=== PATIENT | female | born 1985 | race Hispanic/Latino ===

== ENCOUNTER → 2025-08-30 13:09 | Outpatient (CLI) | payer OTHER, SELFPAY ==
--- NOTE | 2025-08-30 13:13 | DI.US.S_ITS ---
MM diagnostic mammo BI, US breast RT limited: 08/30/2025 BI-RADS: 3 CLINICAL: 40-year old female for bilateral diagnostic mammogram and right diagnostic breast ultrasound. Tyrer-Cuzick lifetime risk of 12.8%. No personal or first- degree family history of breast cancer. The patient presents for additional evaluation of an inconclusive screening mammogram. PRIOR EXAMS 07/16/2025. MAMMOGRAPHY TECHNIQUE: 2D and 3D (tomosynthesis) digital mammographic views obtained, with additional images as needed for full coverage. Current study was also evaluated with a Computer Aided Detection (CAD) system. ULTRASOUND TECHNIQUE TARGETED Right Breast Ultrasound: Real-time ultrasound exam was performed focused to area of clinical and/or imaging concern. Real-time lorenzo scale and color doppler imaging of the area of clinical interest was performed with image documentation. DENSITY C. The breasts are heterogeneously dense, which may obscure small masses. MAMMOGRAPHY FINDINGS Right (finding-1): Upper Outer Quadrant, Middle depth, measuring 1.7cm: Correlating with findings on screening mammogram there is a circumscribed, oval, equal-density mass present. Right (finding-2): MLO only, Lower, Middle depth: The asymmetry seen on recent screening mammogram did not persist with additional imaging and is consistent with superimposition of normal breast tissue. Right: CC only, Outer, Middle depth: The asymmetry seen on recent screening mammogram did not persist with additional imaging and is consistent with superimposition of normal breast tissue. Left: MLO only, Upper, Posterior depth: The asymmetry seen on recent screening mammogram is less conspicuous with additional imaging and is consistent with benign fibroglandular tissue. There are no suspicious masses, calcifications, or other findings in the breast. ULTRASOUND FINDINGS Right (finding-1): Upper Outer at 10:00, 4 cm from nipple, measuring 1.5 x 0.8 x 1.6 cm: Correlating with findings on mammogram there is an oval mass that is parallel showing no posterior acoustic features. Doppler shows no vascularity. Right (finding-2): Lower at 6:00, 3 cm from nipple: There is no sonographic abnormality to account for imaging concern on mammography. IMPRESSION: Right (Mass): Upper Outer at 10:00, 4 cm from nipple, measuring 1.5 x 0.8 x 1.6 cm * Probably Benign. Left * No evidence of malignancy with benign findings. RECOMMENDATIONS Right: Upper Outer at 10:00, 4 cm from nipple * Six month followup with diagnostic ultrasound. Left * Annual screening mammography. COMMENTS: Findings and recommendations were conveyed to the patient during today's evaluation. OVERALL ASSESSMENT CATEGORY BI-RADS-3: Probably Benign. ELECTRONICALLY SIGNED: Alison Valenzuela M.D. on 08/30/2025 at 04:19:21 PM PT Interpreting Station ID: [id number]
== END ==
LOC: MAMMO 13:12
PROVIDERS: PCP Specialist; Referring Provider Specialist; Visit Provider Specialist
DX: R92.8 Other abnormal and inconclusive findings on diagnostic imaging of breast (principal); N63.11 Unspecified lump in the right breast, upper outer quadrant; R92.333 Mammographic heterogeneous density, bilateral breasts
CPT/HCPCS: 76642; 77066; G0279